=== PATIENT | male | born 1965 | race Caucasian/White ===

== ENCOUNTER 2019-11-04 05:49 | Day surgery (SDC) | payer MEDICARE, MEDICAID ==
[2019-11-03 08:23] LABS: BASOPHILS % (AUTO) 0.1 % (0-1); EOSINOPHILS % (AUTO) 0.1 % (0-6); HEMATOCRIT 44.9 % (42.0-52.0); HEMOGLOBIN 15.1 g/dl (14.0-17.9); LYMPHOCYTES # (AUTO) 1.1 X10'3 (1.1-4.8); LYMPHOCYTES % (AUTO) 9.2 % (21-51); MEAN CORPUSCULAR HEMOGLOBIN 30.6 PG (27.0-31.0); MEAN CORPUSCULAR HGB CONC 33.6 g/dL (33.0-36.5); MEAN PLATELET VOLUME 7.8 FL (7.4-10.4); MONOCYTES # (AUTO) 0.2 X10'3 (0-0.9); MONOCYTES % (AUTO) 1.4 % (2-12); NEUTROPHILS # (AUTO) 11.2 X10'3 (1.8-7.7); NEUTROPHILS % (AUTO) 89.2 % (42-75); PLATELET COUNT 313 X10'3 (140-440); RED BLOOD COUNT 4.93 X10'6 (4.70-6.10); RED CELL DISTRIBUTION WIDTH 13.4 % (11.5-14.5); WHITE BLOOD COUNT 12.5 X10'3 (4.5-11.0)
[2019-11-03 08:34] LABS: ALBUMIN 3.6 G/DL (3.4-5.0); BLOOD UREA NITROGEN 12 MG/DL (7-18); BUN/CREATININE RATIO 10.5 (5.4-32.0); CALCIUM 8.3 MG/DL (8.5-10.1); CHLORIDE 107 MMOL/L (99-107); CREATININE 1.14 MG/DL (0.60-1.10); GLUCOSE 178 MG/DL (70-104); PARTIAL THROMBOPLASTIN TIME 30 SECONDS (22-32); TOTAL CARBON DIOXIDE 23.7 MMOL/L (24-32); eGFR 67 ML/MIN
[2019-11-03 08:41] LABS: ANION GAP 10 (8-16); SODIUM 141 MMOL/L (135-145)
[2019-11-04] VITALS (9 sets, daily range): BP systolic 123–143; BP diastolic 64–80
[~2019-11-04] VITALS: Ht 182.9 cm; Wt 113.0 kg
[~2019-11-04 05:49] MED LIST: ATOR20TA66 PO; FLO0.4C PO; OXYM5TAB; TESTOSTERONE IM; TRIA10VI IM; VIT B12; VIT D2
[2019-11-04] MEDS ORDERED: diphenhydrAMINE 25mg capsule PO PRN (06:05)
[2019-11-04] MEDS ORDERED: LORazepam 0.5 MG tablet PO PRN (06:05)
[2019-11-04] MEDS ORDERED: normal saline 1,000 ML IV SCH (06:05)
[2019-11-04] MEDS ORDERED: PRED20TA PO (06:25)
[2019-11-04] MEDS ORDERED: LOSA50TA64 PO (06:25)
[2019-11-04] MEDS ORDERED: OXYC-511 PO (06:25)
[2019-11-04] MEDS ORDERED: ASPI-771 (06:25)
[2019-11-04] MEDS ORDERED: TADA5TAB2 PO (06:25)
[2019-11-04] MEDS ORDERED: ROSU40TA PO (06:25)
[2019-11-04] MEDS ORDERED: vit B12 IM (06:33)
[2019-11-04] MEDS ORDERED: IBUP-1986 PO (06:33)
[2019-11-04] MEDS ORDERED: DILT120C91 PO (06:33)
[2019-11-04] MEDS ORDERED: midazolam 2 mg/2 ml injection ONE (07:25)
[2019-11-04] MEDS ORDERED: nitroGLYCERIN-Tridil 50MG/D5W 250 ML IV ONE (07:25)
[2019-11-04] MEDS ORDERED: verapamil 2.5 mg/ml inj IV ONE (07:25)
[2019-11-04] MEDS ORDERED: iohexol 350 MG/ML 50ML vial IV ONE ×2 (07:26→08:30)
[2019-11-04] MEDS ORDERED: fentaNYL/PF 50MCG/1 ML 2ML syringe ONE (07:26)
[2019-11-04] MEDS ORDERED: LIDOcaine 1% (10mg/ml)w/preservative injection 20ml MDV ONE (07:26)
[2019-11-04] MEDS ORDERED: heparin 1,000unit/ml 10ml vial 10 ML ONE (07:26)
[2019-11-04] MEDS ORDERED: iohexol 350MG/ML 100ml bottle IV ONE (07:26)
[2019-11-04] MEDS ORDERED: LIDOcaine/PRILOcaine 5gm cream TP ONE (07:45)
== END 2019-11-04 13:15 | disposition home or self-care (01) ==
LOC: SSTAY O 05:49
PROVIDERS: ATTEND Internal Medicine Cardiovascular Disease
DX: R94.39 Abnormal result of other cardiovascular function study (principal); I25.118 Atherosclerotic heart disease of native coronary artery with other forms of angina pectoris; E78.5 Hyperlipidemia, unspecified; I48.0 Paroxysmal atrial fibrillation; I10 Essential (primary) hypertension; F17.210 Nicotine dependence, cigarettes, uncomplicated; Z79.899 Other long term (current) drug therapy; Z79.82 Long term (current) use of aspirin; Z87.19 Personal history of other diseases of the digestive system; Z98.890 Other specified postprocedural states; Z88.5 Allergy status to narcotic agent; Z88.8 Allergy status to other drugs, medicaments and biological substances; Z82.49 Family history of ischemic heart disease and other diseases of the circulatory system
CPT/HCPCS: 36415; 80048; 85025; 85610; 85730; 93005; 93458; 99152; 99153; C1769; C1894; J1644; J2001; J2250; J3010; J7030; Q0163; Q9967; A4620; A5120; J3490